=== PATIENT | female | born 1930 | race American Indian/Alaskan Native ===

== ENCOUNTER 2017-05-23 14:46 | Outpatient (CLI) | payer MEDICARE ==
--- NOTE | 2017-05-24 09:44 | XRay Report ---
Cervical spine 3 views: History: Dizziness, thyroidectomy. Findings: Normal height of vertebral bodies. Decrease in height of C4-C5, C5-C6 and C6-C7. Sclerotic articular surfaces with peripheral osteophytes suggestive of moderate to severe cervical spondylosis normal prevertebral soft tissue. Impression: Cervical spondylosis.
== END 2017-05-23 14:47 | disposition home or self-care (01) ==
LOC: VAS 14:46
DX: M47.892 Other spondylosis, cervical region (principal); R42 Dizziness and giddiness; Z90.89 Acquired absence of other organs
CPT/HCPCS: 72040; 93880

== ENCOUNTER 2019-10-10 13:54 | Emergency (ER) | payer MEDICARE ==
--- NOTE | 2019-10-10 14:23 | Event Note ---
ED Screening Note ED Screening Note: productive cough for 4 months went to her primary care doctor and was prescribed medication but does not know the name of it no fever no sob no chest pain also rash to the groin that began today no dysuria no n/v/d PMHx HTN, thyroid removal no allergies to meds This initial assessment/diagnostic orders/clinical plan/treatment(s) is/are subject to change based on patients health status, clinical progression and re- assessment by fellow clinical providers in the ED. Further treatment and workup at subsequent clinical providers discretion. Patient/guardian urged not to elope from the ED as their condition may be serious if not clinically assessed and managed. Initial orders include: labs, CXR, UA
--- NOTE | 2019-10-10 14:54 | XRay Report ---
CHEST 1 VIEW 1438 INDICATION / CLINICAL INFORMATION: productive cough. COMPARISON: None available. FINDINGS: SUPPORT DEVICES: None HEART / MEDIASTINUM: Cardiomegaly. Aortic tortuosity and ectasia. LUNGS / PLEURA: Patient is rotated. Artifact is seen. Bibasilar atelectatic changes are noted. I brayden ot exclude developing pneumonitis in the left base but no definite areas of consolidation are seen. S lightly congested appearance is noted. No pneumothorax. ADDITIONAL FINDINGS: No significant additional findings. IMPRESSION: Slight congestion. Basilar atelectasis and questionable left basilar infiltrate. Clinical correlation is suggested. Signer Name: Noel Redd MD Signed: 10/10/2019 2:49 PM Workstation Name: [id number]
[2019-10-10 15:50] LABS: Calcium 8.1 mg/dL (8.4-10.2)
[2019-10-10 15:52] LABS: Hematocrit 28.2 % (30.3-42.9); Hemoglobin 9.4 gm/dl (10.1-14.3); Mean Corpuscular HGB Conc 34 % (30-34); Mean Corpuscular Volume 80 fl (79-97); Platelet Count 293 K/mm3 (140-440); Red Blood Count 3.52 M/mm3 (3.65-5.03)
[2019-10-10 15:56] LABS: Red Cell Distribution Width 25.3 % (13.2-15.2)
[2019-10-10 15:57] LABS: Basophils % (Auto) 0.3 % (0.0-1.8); Eosinophils # (Auto) 0.1 K/mm3 (0.0-0.4); Eosinophils % (Auto) 0.9 % (0.0-4.3); Lymphocytes % (Auto) 12.4 % (13.4-35.0); Monocytes # (Auto) 0.5 K/mm3 (0.0-0.8)
--- NOTE | 2019-10-10 16:22 | Emergency Department Report ---
- General Chief Complaint: Upper Respiratory Infection Stated Complaint: COUGH X3 MONTH Time Seen by Provider: 10/10/19 14:20 Source: patient Mode of arrival: Wheelchair Limitations: No Limitations - History of Present Illness Initial Comments: Patient is 88-year-old F [place] female who is presenting with 4 months of off-and-on coughing. Cough is worsened over the last several weeks. Patient has some mild shortness of breath as well. Patient's daughter who is here states that the cough is productive of dark yellow sputum. She is been complaining of chills over the last several weeks as well. Patient states approximately 2 weeks ago her primary care physician put her on a short course of antibiotics. They believe it may have been a Z-Master. Cough got slightly better but has returned. Patient denies any fevers chills at this time and she also denies nausea vomiting diarrhea sore throat or neck stiffness. - Related Data Home Medications Medication Instructions Recorded Confirmed Last Taken Aspirin 325 mg PO QDAY 04/28/15 01/21/18 Unknown Levothyroxine [Synthroid] 100 mcg PO QAM 01/21/18 01/21/18 Unknown amLODIPine 10 mg PO DAILY 01/21/18 01/21/18 Unknown Previous Rx's Medication Instructions Recorded Last Taken Type Metoprolol [Lopressor TAB] 25 mg PO BID #60 tablet 01/26/18 Unknown Rx Pantoprazole [Protonix TAB] 40 mg PO BID #30 tablet 01/26/18 Unknown Rx Acetaminophen 500 mg PO TID PRN #30 tablet 12/01/18 Unknown Rx Naproxen [Naprosyn] 500 mg PO BID #14 tablet 12/01/18 Unknown Rx Albuterol INH(or & Nicu Only) 2 puff IH QID PRN #1 inhalation 10/10/19 Unknown Rx [ProAir HFA Inhaler] Nystatin [Nystop Powder] 1 applicatio TP BID #1 bottle 10/10/19 Unknown Rx levoFLOXacin [Levaquin TAB] 500 mg PO QDAY #7 tablet 10/10/19 Unknown Rx Allergies Allergy/AdvReac Type Severity Reaction Status Date / Time shrimp Allergy Hives Verified 01/23/18 08:01 ED Review of Systems ROS: Stated complaint: COUGH X3 MONTH Other details as noted in HPI Comment: All other systems reviewed and negative ED Past Medical Hx - Past Medical History Previous Medical History?: Yes Hx Hypertension: Yes Hx CVA: Yes Hx GERD: Yes Hx Arthritis: Yes Additional medical history: POLYCYTHEMIA. HIGH CHOLESTEROL, KNEE INJECTIONS FOR ARTHRITIS PAIN - Surgical History Past Surgical History?: Yes Additional Surgical History: THYROIDECTOMY. TONSILLECTOMY - Social History Smoking Status: Never Smoker Substance Use Type: None - Medications Home Medications: Home Medications Medication Instructions Recorded Confirmed Last Taken Type Aspirin 325 mg PO QDAY 04/28/15 01/21/18 Unknown History Levothyroxine [Synthroid] 100 mcg PO QAM 01/21/18 01/21/18 Unknown History amLODIPine 10 mg PO DAILY 01/21/18 01/21/18 Unknown History Metoprolol [Lopressor TAB] 25 mg PO BID #60 tablet 01/26/18 Unknown Rx Pantoprazole [Protonix TAB] 40 mg PO BID #30 tablet 01/26/18 Unknown Rx Acetaminophen 500 mg PO TID PRN #30 tablet 12/01/18 Unknown Rx Naproxen [Naprosyn] 500 mg PO BID #14 tablet 12/01/18 Unknown Rx Albuterol INH(or & Nicu Only) 2 puff IH QID PRN #1 inhalation 10/10/19 Unknown Rx [ProAir HFA Inhaler] Nystatin [Nystop Powder] 1 applicatio TP BID #1 bottle 10/10/19 Unknown Rx levoFLOXacin [Levaquin TAB] 500 mg PO QDAY #7 tablet 10/10/19 Unknown Rx ED Physical Exam - General Limitations: No Limitations General appearance: alert, in no apparent distress - Head Head exam: Present: atraumatic, normocephalic - Eye Eye exam: Present: normal appearance - ENT ENT exam: Present: mucous membranes moist - Neck Neck exam: Present: normal inspection - Respiratory Respiratory exam: Present: normal lung sounds bilaterally. Absent: respiratory distress, wheezes, rales, rhonchi, chest wall tenderness - Cardiovascular Cardiovascular Exam: Present: regular rate, normal rhythm, normal heart sounds. Absent: systolic murmur, diastolic murmur, rubs, gallop - GI/Abdominal GI/Abdominal exam: Present: soft, normal bowel sounds. Absent: distended, tenderness, guarding, rebound - Extremities Exam Extremities exam: Present: normal inspection - Back Exam Back exam: Present: normal inspection - Neurological Exam Neurological exam: Present: alert, oriented X3 - Psychiatric Psychiatric exam: Present: normal affect, normal mood - Skin Skin exam: Present: warm, dry, intact, normal color, rash (Mild skin excoriation with satellite lesions erythema to the right inguinal area and his skin crease) ED Course Vital Signs 10/10/19 14:11 Temperature 98.6 F Pulse Rate 75 Respiratory 18 Rate Blood Pressure 120/58 O2 Sat by Pulse 94 Oximetry ED Medical Decision Making - Lab Data Result diagrams: 10/10/19 15:21 10/10/19 15:21 - Radiology Data CHEST 1 VIEW INDICATION: missed dialysis. COMPARISON: September 13, 2019 FINDINGS: SUPPORT DEVICES: Hemodialysis catheters tip in superior vena cava right atrial junction. HEART / MEDIASTINUM: No significant abnormality. LUNGS / PLEURA: No significant pulmonary or pleural abnormality. No pneumothorax. ADDITIONAL FINDINGS: IMPRESSION: 1. No acute cardiopulmonary disease Signer Name: Mau Guo MD Signed: 10/10/2019 1:47 PM Workstation Name: [id number] - Medical Decision Making Patient is a 88-year-old -[place] female who is presenting with cough for several months however worsened over the last several weeks. Chest x-ray shows probable left lower lobe infiltrate. Patient will be started on a longer course of antibiotics with better coverage for the lung then Z-Master and the patient will be given medication for symptomatic relief and discharged home. Critical care attestation.: If time is entered above; I have spent that time in minutes in the direct care of this critically ill patient, excluding procedure time. ED Disposition Clinical Impression: Atypical pneumonia, [place] infection of genital region Disposition: DC-01 TO HOME OR SELFCARE Is pt being admited?: No Does the pt Need Aspirin: No Condition: Stable Instructions: Pneumonia (ED), Jock Itch (ED) Referrals: PRIMARY CARE, [Primary Care Provider] - 3-5 Days Time of Disposition: 16:26
[2019-10-10 16:59] VITALS: BP 119/52
== END 2019-10-10 17:01 | disposition home or self-care (01) ==
LOC: ED 13:54
DX: B37.49 Other urogenital candidiasis (principal); J18.9 Pneumonia, unspecified organism; I10 Essential (primary) hypertension; K21.9 Gastro-esophageal reflux disease without esophagitis; M19.90 Unspecified osteoarthritis, unspecified site; E89.0 Postprocedural hypothyroidism; Z86.73 Personal history of transient ischemic attack (TIA), and cerebral infarction without residual deficits; Z98.890 Other specified postprocedural states; Z90.89 Acquired absence of other organs; Z79.899 Other long term (current) drug therapy; Z91.013 Allergy to seafood
CPT/HCPCS: 36415; 71045; 80048; 83880; 85025